=== PATIENT | male | born 1995 | race African-American/Black ===

== ENCOUNTER 2023-04-19 06:53 | Emergency (ER) | payer MEDICAID ==
[2023-04-19 07:04] VITALS: PULSE 94
[2023-04-19] MEDS ORDERED: ALBU6.7H15 INH (07:11)
== END 2023-04-19 07:17 | disposition home or self-care (01) ==
LOC: ER 06:53
DX: Z76.0 Encounter for issue of repeat prescription (principal); J45.909 Unspecified asthma, uncomplicated
CPT/HCPCS: 99281

== ENCOUNTER 2023-08-19 22:51 | Emergency (ER) | payer MEDICAID ==
[~2023-08-19] VITALS: Ht 182.9 cm; Wt 67.0 kg
[~2023-08-19 22:51] MED LIST: ALBU6.7H15 INH
[2023-08-20 00:09] VITALS: BP 114/74; PULSE 118; RESP 19; TEMP 97.6; O2SAT 97
[2023-08-20] MEDS ORDERED: ALBU6.7H15 INH (01:01)
== END 2023-08-20 01:25 | disposition home or self-care (01) ==
LOC: ER 22:51
DX: J45.909 Unspecified asthma, uncomplicated (principal); Z76.0 Encounter for issue of repeat prescription
CPT/HCPCS: 99281; 99283